=== PATIENT | male | born 1995 | race Two or more races ===

== ENCOUNTER 2020-04-19 16:24 | Outpatient (CLI) | payer OTHER | END 2020-04-19 17:00 | disposition home or self-care (01) | LOC: OFIC 805 16:24 | PROVIDERS: ATTEND Otolaryngology Otology & Neurotology | DX: J02.8 Acute pharyngitis due to other specified organisms (principal) ==

== ENCOUNTER 2020-04-19 17:14 | Outpatient (CLI) | payer OTHER | END 2020-04-19 17:19 | disposition home or self-care (01) | LOC: LAB 17:14 | PROVIDERS: ATTEND Otolaryngology Otology & Neurotology | DX: J36 Peritonsillar abscess (principal) ==

== ENCOUNTER 2020-04-23 13:03 | Outpatient (CLI) | payer OTHER | END 2020-04-23 14:00 | disposition home or self-care (01) | LOC: OFIC 805 13:03 | PROVIDERS: ATTEND Otolaryngology Otology & Neurotology | DX: J02.8 Acute pharyngitis due to other specified organisms (principal) ==

== ENCOUNTER → 2020-05-21 | Outpatient (CLI) | payer OTHER | END | disposition home or self-care (01) | LOC: OFIC 805 13:15 | PROVIDERS: ATTEND Otolaryngology Otology & Neurotology | DX: J02.8 Acute pharyngitis due to other specified organisms (principal) ==